=== PATIENT | female | born 1955 ===

== ENCOUNTER → 2018-10-06 | Outpatient (CLI) | payer BC ==
[2018-10-06 07:40] LABS: BASOPHILS ABSOLUTE AUTO 0.05 K/mm3 (0.00-0.23); BASOPHILS PERCENT AUTO 1 % (0-2); EOSINOPHILS ABSOLUTE AUTO 0.13 K/mm3 (0.00-0.68); EOSINOPHILS PERCENT AUTO 3 % (0-6); Hematocrit 40.6 % (33.0-51.0); Hemoglobin 13.9 g/dL (11.5-16.0); IMMATURE GRAN ABSOLUTE AUTO 0.01 K/mm3 (0.00-0.10); IMMATURE GRAN PERCENT AUTO 0 % (0-1); LYMPHOCYTES ABSOLUTE AUTO 2.16 K/mm3 (0.84-5.20); LYMPHOCYTES PERCENT AUTO 42 % (21-46); MONOCYTES ABSOLUTE AUTO 0.37 K/mm3 (0.16-1.47); MONOCYTES PERCENT AUTO 7 % (4-13); Mean Corpuscular HGB 31.7 pg (26.0-34.0); Mean Corpuscular HGB Conc 34.2 g/dL (31.5-36.5); Mean Corpuscular Volume 93 fL (80-100); Mean Platelet Volume 9.4 fL (9.1-12.4); NEUTROPHILS ABSOLUTE AUTO 2.38 K/mm3 (1.96-9.15); NEUTROPHILS PERCENT AUTO 47 % (41-73); Platelet Count 231 K/mm3 (150-400); RDW Coefficient Variation 12.4 % (11.7-14.2); RDW Standard Deviation 42.1 fL (35.1-46.3); Red Blood Cell Count 4.38 M/mm3 (3.80-5.20)
[2018-10-06 08:07] LABS: Alanine Aminotransfer (ALT/SGP 24 U/L (12-78); Albumin, Blood 3.9 g/dL (3.4-5.0); Albumin/Globulin Ratio 1.3 (0.8-1.8); Alk Phos 67 U/L (40-126); Anion Gap 9 mmol/L (6-16); Aspartate Aminotrans (AST/SGOT 19 U/L (12-37); Bilirubin, Total 0.4 mg/dL (0.1-1.0); Blood Urea Nitrogen 16 mg/dL (8-24); Bun/Creatinine Ratio 17.6 (12.0-20.0); CHOL/HDL RATIO 3.1; CO2, Blood 27 mmol/L (21-32); Chloride, Blood 106 mmol/L (98-108); Cholesterol 186 mg/dL (50-200); Creatinine, Blood 0.91 mg/dL (0.40-1.00); Globulin, Blood 3.1 g/dL (2.2-4.0); Glomerular Filtration Rate >60 (60-); Glucose, Blood 100 mg/dL (70-99); HDL Cholesterol 60 mg/dL (>39); LDL/HDL RATIO 1.8; Low Density Lipoprotein Chol 109 mg/dL (<110); Potassium, Blood 4.6 mmol/L (3.5-5.5); Sodium, Blood 142 mmol/L (136-145); Triglycerides 87 mg/dL (30-160); Very Low Density Lipoprot Chol 17 mg/dL (6-32)
== END | disposition home or self-care (01) ==
LOC: LAB SHORT 07:28 → LAB EV 07:28
PROVIDERS: Nurse Practitioner Family
DX: E55.9 Vitamin D deficiency, unspecified (principal); I10 Essential (primary) hypertension; E03.9 Hypothyroidism, unspecified
CPT/HCPCS: 36415; 80053; 80061; 82306; 84443; 85025

== ENCOUNTER → 2018-11-06 | Outpatient (CLI) | payer BC | END | disposition home or self-care (01) | LOC: PLD 14:27 → LAB SHORT 14:27 | DX: D22.71 Melanocytic nevi of right lower limb, including hip (principal) | CPT/HCPCS: 88305 ==

== ENCOUNTER → 2020-04-27 | Outpatient (CLI) | payer SELFPAY ==
[2020-04-27 12:57] LABS: BASOPHILS ABSOLUTE AUTO 0.04 K/mm3 (0.00-0.23); BASOPHILS PERCENT AUTO 1 % (0-2); EOSINOPHILS PERCENT AUTO 2 % (0-6); Hemoglobin 14.9 g/dL (11.5-16.0); IMMATURE GRAN ABSOLUTE AUTO 0.01 K/mm3 (0.00-0.10); IMMATURE GRAN PERCENT AUTO 0 % (0-1); LYMPHOCYTES ABSOLUTE AUTO 2.52 K/mm3 (0.84-5.20); LYMPHOCYTES PERCENT AUTO 38 % (21-46); MONOCYTES ABSOLUTE AUTO 0.51 K/mm3 (0.16-1.47); MONOCYTES PERCENT AUTO 8 % (4-13); Mean Corpuscular HGB 31.7 pg (26.0-34.0); Mean Corpuscular HGB Conc 34.7 g/dL (31.5-36.5); Mean Corpuscular Volume 92 fL (80-100); Mean Platelet Volume 9.4 fL (9.1-12.4); NEUTROPHILS ABSOLUTE AUTO 3.47 K/mm3 (1.96-9.15); NEUTROPHILS PERCENT AUTO 52 % (41-73); Platelet Count 224 K/mm3 (150-400); RDW Coefficient Variation 12.3 % (11.7-14.2); RDW Standard Deviation 41.1 fL (35.1-46.3); White Blood Cell Count 6.65 K/mm3 (4.00-11.30)
[2020-04-27 13:23] LABS: Albumin, Blood 4.4 g/dL (3.4-5.0); Albumin/Globulin Ratio 1.3 (0.8-1.8); Bilirubin, Total 0.3 mg/dL (0.1-1.0); Bun/Creatinine Ratio 14.3 (12.0-20.0); Calcium, Blood 9.5 mg/dL (8.5-10.1); Creatinine, Blood 0.98 mg/dL (0.40-1.00); Globulin, Blood 3.4 g/dL (2.2-4.0); Potassium, Blood 3.6 mmol/L (3.5-5.5); Thyroid Stimulating Hormone 2.297 uIU/mL (0.360-4.800); Total Protein, Blood 7.8 g/dL (6.4-8.2)
== END | disposition home or self-care (01) ==
LOC: LAB EV 12:53 → LAB SHORT 12:53
PROVIDERS: Physician Assistant
DX: R53.83 Other fatigue (principal)
CPT/HCPCS: 80053; 84443; 85025

== ENCOUNTER → 2021-12-20 | Outpatient (CLI) | payer BC | END | disposition home or self-care (01) | LOC: LAB 13:16 → LAB SHORT 13:16 | DX: H65.05 Acute serous otitis media, recurrent, left ear (principal) | CPT/HCPCS: 87070; 87106; 87205 ==

== ENCOUNTER → 2023-11-22 | Outpatient (CLI) | payer MEDICARE, OTHER | LOC: LAB 08:56 → LAB SHORT 08:56 | DX: N39.0 Urinary tract infection, site not specified (principal) | CPT/HCPCS: 87077; 87086; 87186 ==

== ENCOUNTER 2024-04-15 12:22 | Day surgery (SDC) | payer MEDICARE, OTHER ==
[2024-04-15] VITALS (14 sets, daily range): BP systolic 134–164; BP diastolic 66–96
[~2024-04-15] VITALS: Ht 165.1 cm; Wt 70.8 kg
[~2024-04-15 12:22] MED LIST: ASPI81CH PO; LEVOTHYROXINE88 MC9 PO; LOSA50 PO
[2024-04-15] MEDS ORDERED: Bupivacaine 0.5% HCl 5 MG/ML 30MLVIAL ONE (12:47)
[2024-04-15] MEDS ORDERED: Lactated Ringer's 1,000 ML IV SCH (13:00)
[2024-04-15] MEDS ORDERED: CeFAZolin Sodium 2,000 MG in NS 100 ML IV SCH (13:05)
[2024-04-15] MEDS ORDERED: Bupivacaine HCl 0.25% 30 ML Injection ONE (13:19)
[2024-04-15] MEDS ORDERED: Ondansetron HCl 2 MG / ML 2ML Vial ONE (13:19)
[2024-04-15] MEDS ORDERED: Lidocaine 1%-Epineph 1:100000 20 ML MDV ONE (13:19)
[2024-04-15] MEDS ORDERED: Dexamethasone Sod Phos 10 MG/ML 1ML VIAL ONE (13:19)
[2024-04-15] MEDS ORDERED: Sugammadex Sodium 200 MG/2ML SDV (100 MG/ML) ONE ×2 (13:20→13:21)
[2024-04-15] MEDS ORDERED: propofoL 20 ML IV ONE (13:20)
[2024-04-15] MEDS ORDERED: Midazolam HCl 1MG / ML 2ML Vial ONE (13:23)
[2024-04-15] MEDS ORDERED: HYDROmorphone HCl/Pf 1MG SYR ONE (14:15)
[2024-04-15] MEDS ORDERED: HYDROcodone 5-APAP 325 TAB PO PRN (16:30)
--- NOTE | 2024-04-15 16:59 | NUR ---
PT TO DAY SURGERY FROM PACU, BEDSIDE REPORT RECEIVED. PT IS AWAKE, ALERT AND ORIENTED; ABLE TO MOVE SELF IN BED. PT STATES SHE HAS SOME ACHE IN HER LEFT ANKLE. PT HAS SPLINT THAT IS WRAPPED WITH BRADY WRAP TO LEFT FOOT AND UP TO UNDER KNEE; IT IS C/D/I. PT IS ABLE TO MOVE TOES. TOES ARE PINK AND DRY, CAP REFIL <3 SECONDS.
--- NOTE | 2024-04-15 17:12 | NUR ---
PO FLUIDS GIVEN.
--- NOTE | 2024-04-15 17:20 | NUR ---
PT UP TO BEDPAN, ABLE TO VOID. TOLERATING PO FLUIDS AND CHEESE WELL.
--- NOTE | 2024-04-15 17:52 | NUR ---
Discharge instructions reviewed with patient. Patient verbalizes understanding. Copy given to patient to take home. Pt was unsure about going home, worried about how she will get around, but her daughter is at bedside and states she will be at home with her and be there to help.Pt is good with this plan and feels safe going home. Pt daughter will be pt ride home.
--- NOTE | 2024-04-15 18:21 | NUR ---
Discharge instructions reviewed with patient. Patient verbalizes understanding. Copy given to patient to take home. Dressing to procedure site clean, dry, intact with no visible drainage, swelling, erythema or bruising noted. Discharged via wheelchair to private car for ride home. PT DAUGHTER AT PT SIDE AND PLAN FOR DAUGHTER TO STAY WITH PT AT HER HOUSE TONIGHT TO HELP CARE FOR PT.
== END 2024-04-15 18:25 | disposition home or self-care (01) ==
LOC: ORSCMMR 12:22 → ORD 15:00 → ORSCMMR 15:00
PROVIDERS: Podiatrist Foot & Ankle Surgery
PROC: 0QSK04Z Reposition Left Fibula with Internal Fixation Device, Open Approach (ICD-10-PCS; principal; 2024-04-15 13:00)
PROC: 0QSH04Z Reposition Left Tibia with Internal Fixation Device, Open Approach (ICD-10-PCS; principal; 2024-04-15 13:00)
DX: S82.852A Displaced trimalleolar fracture of left lower leg, initial encounter for closed fracture (principal); I10 Essential (primary) hypertension; E03.9 Hypothyroidism, unspecified; Z79.899 Other long term (current) drug therapy; Z79.82 Long term (current) use of aspirin
CPT/HCPCS: 73610; A9270; C1713; J0690; J1100; J1170; J2250; J2405; J2704; J7120

== ENCOUNTER → 2025-05-11 | Outpatient (CLI) | payer MEDICARE, OTHER | LOC: LAB 13:40 → LAB SHORT 13:40 | DX: N39.0 Urinary tract infection, site not specified (principal) | CPT/HCPCS: 87077; 87086; 87186 ==